=== PATIENT | female | born 1975 | race Caucasian/White ===

== ENCOUNTER 2021-07-06 11:53 | Emergency (ER) | payer OTHER ==
[~2021-07-06 11:53] MED LIST: ASPIRIN EC81 MG PO; BACTRIM DS TAB1 EACH PO; COLACE100 MG PO; FEOSOL325 MG PO; FLOMAX0.4 MG PO; IBUPROFEN800 MG PO; MACROBID100 MG PO; NORCO 5-325 TA1 EACH PO; PERCOCET 5-3251 EACH PO; ZOFRAN8 MG PO
[2021-07-06 13:43] LABS: BASOPHIL 0.5 % (0-2); EOSINOPHIL 1.7 % (0-5); HCT 40.8 % (37.0-47.0); HGB 13.4 g/dl (12.5-16.0); LYMPHOCYTE 29.6 % (15-48); MCH 27.9 pg (25.0-31.0); MCHC 32.8 g/dL (32.0-36.0); MONOCYTE 6.8 % (0-12); MPV 10.3 fL (6.0-9.5); NEUTROPHIL 60.9 % (41-80); NRBC 0; PLT 412 K/uL (150-400); WBC 10.9 K/uL (4.0-10.5)
[2021-07-06 14:22] LABS: ALBUMIN 3.9 g/dL (3.4-5.0); BILIRUBIN - TOTAL 0.4 mg/dL (0.2-1.0); CREATININE 0.43 mg/dL (0.51-0.95); GLOBULIN (CALCULATION) 4.6 g/dL; POTASSIUM 3.5 mmol/L (3.5-5.1); TOTAL PROTEIN 8.5 g/dL (6.4-8.2)
[2021-07-06 15:01] LABS: INR 1.04 (0.9-1.2); PTT 28.7 SECONDS (24.4-34.7)
[2021-07-06 15:02] LABS: D-DIMER 0.31 ug/mLFEU (0.00-0.41)
[2021-07-06] MEDS ORDERED: PRINIVIL10 MG PO (19:12)
== END 2021-07-06 19:51 | disposition home or self-care (01) ==
LOC: FER 11:53
PROVIDERS: Emergency Medicine
DX: R07.89 Other chest pain (principal)
CPT/HCPCS: 36415; 71045; 71250; 80053; 83880; 84484; 85025; 85379; 85610; 85730; 93005